=== PATIENT | female | born 1945 | race Caucasian/White ===

== ENCOUNTER → 2023-12-29 14:00 | Outpatient (REF) | payer MEDICARE, OTHER, SELFPAY | LOC: PAVMRI 14:00 | PROVIDERS: ATTENDING PHYSICIAN Emergency Medicine | DX: K86.2 Cyst of pancreas (principal) | CPT/HCPCS: 74183; A9575 ==

== ENCOUNTER → 2024-05-10 08:38 | Outpatient (REF) | payer MEDICARE, OTHER, SELFPAY | LOC: HWRAD 08:38 | PROVIDERS: ATTENDING PHYSICIAN Internal Medicine Rheumatology; FAMILY PHYSICIAN Emergency Medicine | DX: M81.0 Age-related osteoporosis without current pathological fracture (principal); Z13.820 Encounter for screening for osteoporosis | CPT/HCPCS: 77080 ==

== ENCOUNTER → 2024-05-10 14:38 | Outpatient (REF) | payer MEDICARE, OTHER, SELFPAY | LOC: RAD 14:38 | PROVIDERS: ATTENDING PHYSICIAN Emergency Medicine | DX: M79.674 Pain in right toe(s) (principal) | CPT/HCPCS: 73630 ==

== ENCOUNTER → 2024-06-25 16:34 | Outpatient (REF) | payer MEDICARE, OTHER, SELFPAY ==
[2024-06-25 17:38] LABS: Urine Albumin 1+ (Neg - Trace); Urine Bilirubin Negative (Negative); Urine Character Slightly Cloudy (Clear); Urine Color Yellow; Urine Glucose Negative (Negative); Urine Ketone Negative (Negative); Urine Leukocyte 2+ (Negative); Urine Nitrite Positive (Negative); Urine Occult Blood 1+ (Negative); Urine Specific Gravity 1.015 (<1.030); Urine Urobilinogen Negative (Neg - 1+)
[2024-06-25 17:46] LABS: Urine Bacteria Many (Negative); Urine White Cell >100 /HPF (0-5)
== END ==
LOC: REG 16:34
PROVIDERS: ATTENDING PHYSICIAN Urology; FAMILY PHYSICIAN Emergency Medicine
DX: N39.0 Urinary tract infection, site not specified (principal)
CPT/HCPCS: 81003; 81015; 87077; 87086

== ENCOUNTER 2024-07-03 05:07 | Emergency (ER) | payer MEDICARE, OTHER, SELFPAY ==
[2024-07-03 05:10] VITALS: BP 159/86
[2024-07-03 05:25] VITALS: BMI 31.8
[2024-07-03 05:33] VITALS: BP 154/75
[2024-07-03 06:00] VITALS: BP 133/67
[2024-07-03 06:09] LABS: % Basophils 0.4 % (0-2); % Eosinophils 1.8 % (0-6); % Immature Granulocytes 0.4 % (0-0.5); % Lymphocytes 26.2 % (20.5-51.1); % Monocytes 14.2 % (1.7-9.3); Absolute Eosinophils 0.1 10^3/uL (0-0.7); Absolute Monocytes 1.1 10^3/uL (0.1-0.6); Absolute Neutrophils 4.4 10^3/uL (1.4-6.5); Hematocrit 37.7 % (37.0-47.0); Hemoglobin 11.9 g/dL (12.0-16.0); Mean Corp Hgb Conc. 31.6 g/dL (33.0-37.0); Mean Corpuscular Hgb 25.8 pg (27.0-31.0); Mean Corpuscular Volume 81.8 fL (81.0-99.0); Mean Platelet Volume 9.2 fL (7.4-10.4); Nucleated Red Blood Cells % 0 %; Platelet Count 614 10^3/uL (130-400); Red Blood Cell Count 4.61 10^6/uL (4.20-5.40); White Blood Cell Count 7.7 10^3/uL (4.8-10.8)
[2024-07-03 06:19] LABS: ALT (SGPT) 27 U/L (0-35); AST (SGOT) 33 U/L (14-36); Albumin 4.2 g/dl (3.5-5.0); Alkaline Phosphatase 197 U/L (38-126); Blood Urea Nitrogen 23 mg/dl (7-17); Calcium 9.5 mg/dl (8.4-10.2); Carbon Dioxide 28 mmol/L (22-30); Chloride 102 mmol/L (98-107); Estimated Creatinine Clearance 52 ml/min; Glucose 113 mg/dl (70-99); Potassium 4.1 mmol/L (3.5-5.1); Sodium 141 mmol/L (135-145); Total Bilirubin 0.3 mg/dl (0.2-1.3); Total Protein 6.7 g/dl (6.3-8.2); eGFR > 60.00
[2024-07-03 06:31] LABS: Troponin I < 0.012 ng/ml
--- NOTE | 2024-07-03 06:40 | ED.GENMED ---
History of Present Illness
General
Chief Complaint: Dizziness
Source: patient and spouse
Exam Limitations: none
Time Seen by Provider: 07/03/24 06:06
Nursing documentation reviewed up to this point in time: agreed with
History of Present Illness
History of Present Illness:
78-year-old female with a past medical history as noted presents to the emergency room for evaluation after an episode of dizziness. Patient reports that she was having trouble sleeping last night, decided to get up at around 3:30 AM and take one
of her sleeping medications (zaleplon 10 mg x 1). She says that about 10 minutes after taking the medication she began to feel intensely dizzy�she describes sensation 'like the room was moving.' She says that she felt intensely nauseated and
vomited multiple times (nonbloody nonbilious). She says that she sat still for about an hour and waited for symptoms to improve and then ultimately came to the emergency room. Since arrival she says symptoms have resolved and at the time of my
assessment she says she is no longer dizzy even with positional changes and denies feeling any nausea. She says she did not have any associated headache, neck pain. Did not have any associated vision changes, speech issues, focal weakness or
numbness in the extremities. She did not have any associated chest pain or palpitations but when asked about chest pain she says that she had a transient episode while she was sitting on the couch last night around 10 PM�she says that she felt some
mild pressure substernal that lasted for 10 minutes and completely resolved and has not recurred. She did not have any associated signs or symptoms with this episode last night. Patient denies similar symptoms in the past. She does note that she
has taken zaleplon many times in the past that was has never had dizziness with it.
Past History
Past History
ED Past Medical History: Cancer (Breast), HTN, Hypercholesterolemia and Other (anemia/sleep apnea/PMR)
ED Past Surgical History: Cholecystectomy, Gynecological (Endometrial biopsy December 2021) and Other
Social History
Tobacco: Non-smoker
Alcohol: None
Drug: None
Personal:
Living: with family
Employment: Retired
Family History
Family History: Hypertension; Negative Early CAD
Review of Systems
Review of Systems
All Other Systems: ROS reviewed and negative except as documented in HPI and ROS
Constitutional: Denies fever or chills
EENT: Denies sore throat or runny nose
Respiratory: Denies cough or trouble breathing
Cardiac: Reports chest pain (Transient episode last night); Denies palpitations or syncope
ABD/GI: Reports nausea and vomiting; Denies abdominal pain
: Denies flank pain
Musculoskeletal: Denies neck pain or back pain
Neurological: Reports dizzy; Denies headache, weakness or numbness
Phy Exam
Physical Exam
Physical Exam:
General: Awake, alert, oriented x3; no acute distress
Head: Normocephalic, atraumatic
Eyes: Conjunctiva normal, EOMI without nystagmus, pupils equal round and reactive to light bilaterally
Ears: TMs clear bilaterally; negative Fariha-Hallpike
Throat: Airway intact, handling secretions
Neck: Trachea midline, supple without meningismus
Lungs: Clear to auscultation bilaterally, no wheezing, rales, rhonchi
Heart: Regular rate and rhythm, no murmurs, gallops, or rubs
Abd: Soft, non distended, nontender
Neuro: Cranial nerves intact 2 through 12, speech fluid without dysarthria or aphasia, no limb ataxia, motor and sensory function intact and symmetric upper and lower extremities
Skin: no rash
Extremities: No edema in extremities, warm and well-perfused
Scores
Heart Failure Risk
Heart Failure Risk Score: Not Applicable
Heart Score for Chest Pain Patients
STEMI patient?: Not applicable
Withdrawal Assessment of Alcohol
Withdrawal Assessment Completed?: Not applicable
Course
Orders/Labs/Results
Orders:
Orders
07/03/24 05:16
EKG [Electrocardiogram (*1)] Urgent
Reason for Study: Vertigo / Dizzy
07/03/24 05:17
EKG- Treatment ONCE
07/03/24 05:49
Complete Blood Count/With Diff Urgent
Comprehensive Metabolic Panel Urgent
Troponin I Urgent
07/03/24 06:38
CT Head W/o Iv Contrast Urgent
Comment:
Reason For Exam: dizziness
Abnormal Lab Results
07/03/24
05:49
Hgb 11.9 L g/dL
(12.0-16.0)
MCH 25.8 L pg
(27.0-31.0)
MCHC 31.6 L g/dL
(33.0-37.0)
RDW 15.0 H %
(11.5-14.5)
Plt Count 614 H 10^3/uL
(130-400)
Absolute Monos (auto) 1.1 H 10^3/uL
(0.1-0.6)
Monocytes % 14.2 H %
(1.7-9.3)
BUN 23 H mg/dl
(7-17)
Glucose 113 H mg/dl
(70-99)
Alkaline Phosphatase 197 H U/L
(38-126)
07/03/24 05:49
07/03/24 05:49
Vital Signs
Initial and Last Documented VS:
Initial Vital Signs
Pulse Resp BP Pulse Ox
79 20 159/86 94
07/03/24 05:10 07/03/24 05:10 07/03/24 05:10 07/03/24 05:10
Last Documented Vital Signs
Pulse Resp BP Pulse Ox
79 21 148/73 93
07/03/24 07:45 07/03/24 07:45 07/03/24 07:00 07/03/24 07:00
MDM/Problems Addressed
Differential Diagnosis Includes:
Vertigo: Peripheral (labyrinthitis, BPPV, etc) versus central (brain mass, stroke/TIA, bleed, etc) versus medication side effect�history seems most consistent with peripheral vertigo
MDM/Problems Addressed:
78-year-old female with history as noted presents to the emergency room for evaluation after an episode of intense vertiginous symptoms associated with nausea/vomiting that lasted for about an hour and have resolved. Symptoms started about 10
minutes after taking sleeping medication (although patient says she has tolerated this medication well in the past without dizziness). Vitals and exam as above�notably negative Fariha-Hallpike, no nystagmus, no reproducible dizziness whatsoever. Will
check labs including a CBC and a CMP. She did mention transient episode of chest pain at 10 PM last night that was separate from her presenting complaints�will check EKG and troponin. Will check CT head. Certainly by history it seems the symptoms
are likely side effect of zaleplon�dizziness is listed as a known common side effect. Will monitor for recurrence reassess after the above.
Initial labs reviewed: CBC shows marginal anemia and stable thrombocytosis, CMP no clinically significant abnormalities. Troponin undetectable x 1 which is sufficient to rule out acute MN as a cause for her transient symptoms at 10 PM last night.
Awaiting rest of workup.
CT head negative for any acute pathology. Patient resting comfortably on clinical reassessment. She has not had recurrence of symptoms since initial episode. Suspect likely this is related to medication; dizziness listed as a common side effect
to zaleplon and temporal relationship of symptoms seems to indicate this is a medication side effect. Patient stable for discharge at this point with no symptoms and reassuring workup. She feels comfortable to this plan. She will follow-up with
her PCP. We spoke about return precautions in detail and all questions were answered.
*Radiology
Radiology exam reviewed: radiology read reviewed
*Pulse Oximetry
Patient hypoxic: no
*EKG
Interpreted by ED Provider?: Yes
Heart Rate: 74
Rate: normal
Rhythm: sinus
[place]: left axis deviation
Interval: first degree heart block
QRS Pattern: normal QRS
Ischemia: no ischemia
*Critical Care Note
Total Time (30-74mins, 75-104mins- exclusive of procedures): Not Applicable
Data Reviewed
Source: patient and spouse
ED Attending Note
-
Portions of this chart may have been created with voice recognition software.� Occasional wrong word or��sound alike� substitutions may have occurred due to the inherent limitations of voice recognition software.
Discharge Plan
Departure
Patient Disposition: Home (Routine Discharge)
Date of Disposition: 07/03/24
Time of Disposition: 08:19
Patient with high blood pressure during this ER visit?: Yes
Discharge Problem:
Vertigo
Instructions: Vertigo (a Type of Dizziness) (DC)
Prescriptions:
No Action
aspirin 325 MG tablet
325 mg PO BID
hydrochlorothiazide 25 MG tablet
25 mg PO BID Qty: 1 0RF
Rx Instructions:
hold systolic blood pressure <125
potassium chloride [Klor-Con M20] 20 MEQ tablet,ER particles/crystals
20 meq PO DAILY
alendronate 70 MG tablet
70 mg PO Q7D
zaleplon 10 MG capsule
10 mg PO PRN PRN (Reason: sleep)
Patient Comments:
months ago per patient.
mirabegron [Myrbetriq] 25 MG tablet extended release 24 hr
25 mg PO DAILY
[place] 3-6-9
2 cap PO DAILY
riboflavin (vitamin B2) [Vitamin B-2] 100 mg Tablet
1 mg PO BID
ezetimibe [Zetia] 10 mg Tablet
10 mg PO DAILY
cranberry extract [Ellura] 200 mg Capsule
200 mg PO DAILY
Celebrex
200 mg PO DAILY
Cymbalta
60 mg PO DAILY
Prolia
See Rx Instructions .ROUTE .COMPLEX
Rx Instructions:
60 mg subcutaneously
Vitamin D3
1,000 unit PO DAILY
armodafinil
150 mg PO DAILY
biotin
2,000 unit PO DAILY
prednisone
10 mg PO DAILY
red yeast rice
600 mg PO DAILY
Referrals:
Millicent Phillip MD [Family Provider] - Follow up in 2-3 days
Activity Restrictions/Additional Instructions:
Thank you for visiting the Emergency Department at [facility].
1. Please schedule a follow up appointment as directed. Call first thing tomorrow morning to make an appointment.
2. If indicated, please take your medications as instructed and indicated on discharge paperwork.
3. If any of your symptoms do not improve, or persist, or become more severe within 6-12 hours, please return to the emergency department for further care.
4. Please return to the emergency department if you develop a headache, neck pain/stiffness, fever greater than 100.4F, chest pain, shortness of breath, persistent nausea, vomiting, slurred speech, difficulty walking, numbness/tingling, weakness,
signs of infection or any other symptoms that are worrisome to you.
Please call [phone] if you have any questions.
Interventions
Interventions:
*Risk Screen - Suicide Last Done: 07/03/24 05:10
*General Assessment Last Done: 07/03/24 05:10
*Neglect/Abuse Screening Last Done: 07/03/24 05:10
ED- Fall Risk Assessment Last Done: 07/03/24 05:34
*ED COVID-19 Vaccine History Last Done: 07/03/24 06:58
ED- Cardiac Assessment Last Done: 07/03/24 06:55
ED-EENT Assessment Last Done: 07/03/24 05:34
ED- Neurological Assessment Last Done: 07/03/24 06:55
ED- Pulmonary Assessment Last Done: 07/03/24 06:55
ED-Skin Assessment Last Done: 07/03/24 05:34
Discharge Date and Time
Print Language: [id number]
[2024-07-03 07:00] VITALS: BP 148/73
[2024-07-03 08:00] VITALS: BP 151/78
== END 2024-07-03 08:39 | disposition home or self-care (01) ==
LOC: EMR 05:07
PROVIDERS: Student in an Organized Health Care Education/Training Program; EMERGENCY PHYSICIAN Emergency Medicine; FAMILY PHYSICIAN Emergency Medicine
DX: R42 Dizziness and giddiness (principal); E78.00 Pure hypercholesterolemia, unspecified; I10 Essential (primary) hypertension; D64.9 Anemia, unspecified; G47.30 Sleep apnea, unspecified; D75.839 Thrombocytosis, unspecified; Z82.49 Family history of ischemic heart disease and other diseases of the circulatory system; Z85.3 Personal history of malignant neoplasm of breast; Z90.49 Acquired absence of other specified parts of digestive tract
CPT/HCPCS: 99284; 70450; 80053; 84484; 85025; 93005

== ENCOUNTER → 2024-08-02 13:43 | Outpatient (REF) | payer MEDICARE, OTHER, SELFPAY | LOC: UCDH 13:43 | PROVIDERS: ATTENDING PHYSICIAN Emergency Medicine; FAMILY PHYSICIAN Emergency Medicine | DX: M79.672 Pain in left foot (principal) | CPT/HCPCS: 73630 ==

== ENCOUNTER → 2024-09-16 14:32 | Outpatient (REF) | payer MEDICARE, OTHER, SELFPAY | LOC: WDC 14:32 | PROVIDERS: ATTENDING PHYSICIAN Emergency Medicine | DX: Z12.31 Encounter for screening mammogram for malignant neoplasm of breast (principal) | CPT/HCPCS: 77063; 77067 ==

== ENCOUNTER → 2025-01-22 07:31 | Outpatient (REF) | payer MEDICARE, OTHER, SELFPAY | LOC: MRI 07:31 | PROVIDERS: ATTENDING PHYSICIAN Nurse Practitioner; FAMILY PHYSICIAN Emergency Medicine | DX: K86.2 Cyst of pancreas (principal) | CPT/HCPCS: 74183; A9575 ==